=== PATIENT | female | born 1975 | race American Indian/Alaskan Native ===

== ENCOUNTER 2020-04-18 08:29 | Emergency (ER) | payer OTHER ==
[2020-04-18 09:13] LABS: Hematocrit 38.4 % (30.3-42.9); Hemoglobin 12.5 gm/dl (10.1-14.3); Mean Corpuscular HGB Conc 33 % (30-34); Mean Corpuscular Volume 87 fl (79-97); Platelet Count 311 K/mm3 (140-440); Red Cell Distribution Width 14.6 % (13.2-15.2)
[2020-04-18 09:34] LABS: Alanine Aminotransferase 13 units/L (7-56); Albumin 4.4 g/dL (3.9-5); BUN/Creatinine Ratio 15; Blood Urea Nitrogen 9 mg/dL (7-17); Calcium 9.8 mg/dL (8.4-10.2); Hemolysis Index 5
[2020-04-18 09:54] LABS: Total Cells Counted 100
[2020-04-18 09:56] LABS: Platelet Estimate Consistent w Auto; RBC Morphology Normal
[2020-04-18 12:55] VITALS: BP 140/78
== END 2020-04-18 12:54 | disposition home or self-care (01) ==
LOC: ED 08:29
DX: R07.89 Other chest pain (principal); E03.9 Hypothyroidism, unspecified; F12.10 Cannabis abuse, uncomplicated; Z79.899 Other long term (current) drug therapy
CPT/HCPCS: 36415; 71046; 80053; 83690; 83735; 84443; 84484; 84703; 85007; 85025; 93005